=== PATIENT | female | born 1970 ===

== ENCOUNTER 2019-07-17 16:45 | Emergency (ER) | payer SELFPAY ==
[~2019-07-17] VITALS: Ht 157.5 cm; Wt 82.3 kg
[2019-07-17] MEDS ORDERED: HYDROCODONE/APAP 10MG-325MG TAB PO ONE (17:30)
[2019-07-17] MEDS ORDERED: HYDROCODONE/APAP 5MG-325MG TAB ONE (17:42)
--- NOTE | 2019-07-17 18:04 | Diagnostic Imaging Report ---
RIGHT FOOT - 3 Image(s) HISTORY: Probable fracture, kicked a chair COMPARISON: None available. FINDINGS: Bones: A mildly comminuted fracture involving the diaphysis of the fifth proximal phalanx, no visible intra-articular extension. No aggressive osseous lesion. Small chronic appearing unhealed avulsion fracture adjacent to the tip of the medial malleolus. Joints: Osseous alignment is within normal limits and the joint spaces are well-maintained. Soft tissues: The soft tissues appear unremarkable. IMPRESSION: Acute, comminuted, extra-articular fracture of the fifth proximal phalanx. Signed by: Dr. Khoi Chin D.O., M.M.M. on 07/17/2019 6:01 PM
[2019-07-17 18:59] VITALS: BP 136/83
== END 2019-07-17 19:00 | disposition home or self-care (01) ==
LOC: FSED 16:45
DX: S92.514A Nondisplaced fracture of proximal phalanx of right lesser toe(s), initial encounter for closed fracture (principal); S92.524A Nondisplaced fracture of middle phalanx of right lesser toe(s), initial encounter for closed fracture; W22.09XA Striking against other stationary object, initial encounter; Y92.008 Other place in unspecified non-institutional (private) residence as the place of occurrence of the external cause
CPT/HCPCS: 99284